=== PATIENT | male | born 1995 | race Caucasian/White ===

== ENCOUNTER 2018-06-09 10:34 | Emergency (ER) | payer OTHER ==
[2018-06-09] MEDS ORDERED: Sodium Chloride 0.9% 1,000 ML IV STA (10:36)
--- NOTE | 2018-06-09 10:42 | ED PDOC ---
HPI: Abdomen Time Seen by Provider: 06/09/18 10:36 Chief Complaint (Nursing): Abdominal Pain Chief Complaint (Provider): abdominal pain History Per: Patient History/Exam Limitations: no limitations Onset/Duration Of Symptoms: Hrs (this morning) Current Symptoms Are (Timing): Still Present Location Of Pain/Discomfort: RLQ Associated Symptoms: Nausea, Other (dizziness). denies: Fever, Chills, Vomiting , Diarrhea, Urinary Symptoms Additional Complaint(s): Paolo Dumont is a 23 year old male, with no significant past medical history, who presents to the emergency department complaining of right lower quadrant pain associated with nausea and dizziness onset since this morning. He denies any fever, chills, vomiting, diarrhea or urinary symptoms. No further medical complaints. PMD: None provided Past Medical History Reviewed: Historical Data, Nursing Documentation, Vital Signs Vital Signs: Last Vital Signs Temp 97.7 F 06/09/18 13:28 Pulse 58 L 06/09/18 13:28 Resp 18 06/09/18 13:28 BP 121/75 06/09/18 13:28 Pulse Ox 100 06/09/18 13:28 - Medical History PMH: No Chronic Diseases - Surgical History Surgical History: No Surg Hx - Family History Family History: States: Unknown Family Hx - Home Medications Home Medications: Ambulatory Orders Medication Instructions Recorded Cephalexin [Keflex] 500 mg PO QID #28 cap 05/25/14 - Allergies Allergies/Adverse Reactions: Allergies Allergy/AdvReac Type Severity Reaction Status Date / Time No Known Allergies Allergy Verified 05/25/14 14:03 Review of Systems ROS Statement: Except As Marked, All Systems Reviewed And Found Negative Constitutional: Negative for: Fever, Chills Gastrointestinal: Positive for: Nausea, Abdominal Pain (RLQ). Negative for: Vomiting, Diarrhea Genitourinary Male: Negative for: Dysuria, Frequency Neurological: Positive for: Dizziness Physical Exam - Reviewed Nursing Documentation Reviewed: Yes Vital Signs Reviewed: Yes - Physical Exam Appears: Positive for: No Acute Distress Head Exam: Positive for: ATRAUMATIC, NORMAL INSPECTION, NORMOCEPHALIC Skin: Positive for: Normal Color, Warm, Dry Eye Exam: Positive for: Normal appearance, EOMI, PERRL Neck: Positive for: Painless ROM Cardiovascular/Chest: Positive for: Regular Rate, Rhythm. Negative for: Murmur Respiratory: Positive for: Normal Breath Sounds. Negative for: Respiratory Distress Gastrointestinal/Abdominal: Positive for: Soft, Tenderness (mild lower quadrant tenderness, left greater than right). Negative for: Guarding, Rebound Back: Positive for: Normal Inspection Extremity: Positive for: Normal ROM (upper and lower extremities). Negative for : Deformity, Swelling Neurologic/Psych: Positive for: Alert, Oriented - Laboratory Results Result Diagrams: 06/09/18 10:45 06/09/18 10:45 - ECG O2 Sat by Pulse Oximetry: 98 (RA) Pulse Ox Interpretation: Normal Medical Decision Making Medical Decision Making: Time: 10:36 Initial Plan: --Abd & Pelvis IV Contrast [CT] --CMP --Urine dipstick --CBC w/ differential --Sodium Chloride 1,000 ml IV 150 mls/hr --Reevaluation ----- Scribe Attestation: Documented by Dawood Gamble, acting as a scribe for Chris Ramirez MD. Provider Scribe Attestation: All medical record entries made by the Scribe were at my direction and personally dictated by me. I have reviewed the chart and agree that the record accurately reflects my personal performance of the history, physical exam, medical decision making, and the department course for this patient. I have also personally directed, reviewed, and agree with the discharge instructions and disposition. Disposition - Clinical Impression Clinical Impression: Mesenteric adenitis, Dehydration - Patient ED Disposition Is Patient to be Admitted: No Counseled Patient/Family Regarding: Studies Performed, Diagnosis, Need For Followup - Disposition Referrals: [facility] [Outside] Disposition: Routine/Home Disposition Time: 13:33 Condition: FAIR Instructions: Dehydration, Adult (DC), Mesenteric Lymphadenitis (DC) Forms: Spl[employer] ([place])
[2018-06-09 10:58] LABS: BASO % 0.7 % (0.0-2.0); EOS # 0.1 K/uL (0.0-0.7); EOS % 2.7 % (0.0-4.0); HEMOGLOBIN 14.8 g/dL (12.0-18.0); LYMPH # 1.9 K/uL (1.0-4.3); LYMPH % 43.8 % (20.0-40.0); MEAN CELL VOLUME 89.9 fl (80.0-94.0); MEAN CORPUSCULAR HEMOGLOBIN 31.2 pg (27.0-31.0); MEAN CORPUSCULAR HGB CONC 34.7 g/dL (33.0-37.0); MONO # 0.4 K/uL (0.0-0.8); MONO % 8.6 % (0.0-10.0); NEUT # 1.9 K/uL (1.8-7.0); NEUT % 44.2 % (50.0-75.0); NRBC % 0.1 % (0.0-0.0); RBC 4.74 Mil/uL (4.40-5.90); RED CELL DISTRIBUTION WIDTH 12.9 % (11.5-14.5); WHITE BLOOD COUNT 4.3 K/uL (4.8-10.8)
[2018-06-09 11:01] LABS: ALB/GLOB RATIO 1.5 (1.0-2.1); ALT/SGPT 35 U/L (21-72); AST/SGOT 31 U/L (17-59); BLOOD UREA NITROGEN 27 mg/dl (9-20); CALCIUM 9.1 mg/dL (8.4-10.2); GFR NON-AFRICAN AMERICAN > 60
[2018-06-09] MEDS ORDERED: Iohexol 300 100 ML IJ ONE (11:17)
[2018-06-09] MEDS ORDERED: Sodium Chloride 0.9% 50 ML IV ONE (11:17)
--- NOTE | 2018-06-09 13:02 | CT ---
Date of service: 06/09/2018 PROCEDURE: CT Abdomen and Pelvis with contrast HISTORY: Abd pain COMPARISON: No prior study available comparison. TECHNIQUE: Contiguous helical/transaxial sections of the abdomen pelvis performed in standard fashion following intravenous contrast injection. Oral contrast not administered per request. Contrast dose: 95 cc Omnipaque 300 Radiation dose: Total exam DLP = mGy-cm. This CT exam was performed using one or more of the following dose reduction techniques: Automated exposure control, adjustment of the mA and/or kV according to patient size, and/or use of iterative reconstruction technique. FINDINGS: LOWER THORAX: Unremarkable. LIVER: Liver exhibits normal size. Mild fatty hepatic infiltration. . No gross lesion or ductal dilatation. GALLBLADDER AND BILE DUCTS: Unremarkable. PANCREAS: Unremarkable. No gross lesion or ductal dilatation. SPLEEN: Unremarkable. ADRENALS: Unremarkable. No mass. KIDNEYS AND URETERS: Unremarkable. No hydronephrosis. No solid mass. VASCULATURE: Unremarkable. No aortic aneurysm. BOWEL: Unremarkable. No obstruction. No gross mural thickening. APPENDIX: Normal-appearing retrocecal appendix is best seen on coronal series image number [id number] PERITONEUM: Unremarkable. No free fluid. No free air. Tiny fat containing umbilical hernia LYMPH NODES: There are a few small nonspecific mesenteric lymph nodes seen in the right lower quadrant possibly representing a mesenteric adenitis rule out possibly viral in origin BLADDER: Unremarkable. REPRODUCTIVE: Unremarkable. BONES: No acute fracture. OTHER FINDINGS: None. IMPRESSION: Few small nonspecific mesenteric lymph nodes seen in the right lower quadrant possibly representing a mesenteric adenitis rule out possibly viral in origin No evidence of acute appendicitis. Mild fatty hepatic infiltration.
[2018-06-09 13:29] VITALS: BP 121/75; PULSE 58; RESP 18; TEMP 97.7
[2018-06-09 13:33] VITALS: O2SAT 98
== END 2018-06-09 14:07 | disposition home or self-care (01) ==
LOC: H.ER 10:34
DX: E86.0 Dehydration (principal); I88.0 Nonspecific mesenteric lymphadenitis
CPT/HCPCS: 74177; 80053; 85025; 99284; J7030; Q9967